=== PATIENT | female | born 1985 | race Caucasian/White ===

== ENCOUNTER 2017-08-12 22:39 | Emergency (ER) | payer OTHER ==
[~2017-08-12] VITALS: Ht 175.3 cm; Wt 164.2 kg
[2017-08-12 22:43] VITALS: TEMP 36.7; Ht 175.3 cm; Wt 164.2 kg
--- NOTE | 2017-08-12 22:56 | EMERGENCY ROOM VISIT NOTE ---
History Report prepared by Kwame: Isaías Saul Under the Supervision of: Dr. Antony Kim M.D. First contact with patient: 22:44 Chief Complaint: COUGH Stated Complaint: COUGH AND SORE THROAT History of Present Illness The patient is a 32 year old female who presents to the Emergency Room with complaints of a persistent cough and sore throat for the past week. The patient notes that her coughs has not been productive and her cough has been keeping her up at night. She reports having asthma as a child. The patient denies any experiencing any fevers, blood in her cough, recent travel, chest pain, nausea, vomiting, diarrhea, or any chance of . Source of History: patient Onset: 1 week ago Position: other Timing: other (persistent ) Associated Symptoms: + sorethroat, No fevers, No nausea, No vomiting, No diarrhea Note: Associated Symptoms: Asthma as a child Denies: Blood in cough, any chance of . Review of Systems See HPI for pertinent positives and negatives. A total of ten systems were reviewed and were otherwise negative. Family History Diabetes mellitus FH: cancer Social History Smoking Status: Never Smoker Smokeless Tobacco Use: No Alcohol Use: none Drug Use: none Marital Status: Housing Status: lives with family Occupation Status: unemployed Current/Historical Medications Scheduled PRN Benzonatate (Tessalon Perles), 100 MG PO TID PRN for Cough Allergies Coded Allergies: No Known Allergies (Unverified , 08/12/17) Physical Exam Vital Signs Date Time Temp Pulse Resp B/P (MAP) Pulse Ox O2 Delivery O2 Flow Rate FiO2 08/12/17 23:47 99 20 166/98 96 Room Air 08/12/17 22:43 36.7 102 20 139/90 93 Room Air Physical Exam Physical Exam GENERAL: She is oriented to person, place, and time. She appears well- developed and well-nourished. She does not appear distressed. ____ HENT: Exam performed. Head: Normocephalic and atraumatic. Right Ear: External ear normal. No mastoid tenderness. Left Ear: External ear normal. No mastoid tenderness. Mouth/Throat: The oropharynx is clear and moist. No trismus in the jaw. No dental abscesses or uvula swelling. No oropharyngeal exudate or tonsillar abscesses. ____ EYES: Conjunctivae and EOM are normal. Pupils are equal, round, and reactive to light. Right eye exhibits no discharge. Left eye exhibits no discharge. No scleral icterus. ____ NECK: Normal range of motion. Neck supple. No JVD present. No spinous process tenderness present. No carotid bruit present. No rigidity. No tracheal deviation and normal range of motion present. No Brudzinski's sign and no Kernig 's sign noted. ____ CV: Normal rate, regular rhythm, normal heart sounds and intact distal pulses. There is no peripheral edema. Palpable radial pulses bue. ____ PULM/CHEST: Effort normal and breath sounds normal. No respiratory distress. No stridor. She has no wheezes. She has no rales. Chest Wall: She exhibits no tenderness. ____ ABD: The abdomen is soft. Bowel sounds are normal. She has no distension. No mass is present. There is no tenderness. There is no rebound, no guarding, no Pearson's sign and no tenderness at McBurney's point. Rovsig negative MUSC/SKEL: Normal range of motion. There is no peripheral edema, tenderness or deformity. LYMPH: No cervical adenopathy. ____ NEURO: She is alert and oriented to person, place, and time. She has normal strength. No cranial nerve deficit or sensory deficit. Coordination and gait normal. GCS eye subscore is 4. GCS verbal subscore is 5. GCS motor subscore is 6. Cerebellar tests wnl. ____ SKIN: Skin is warm and dry. She is not diaphoretic. ____ PSYCH: She has a normal mood and affect. Her behavior is normal. Judgment and thought content normal. ____ Medical Decision & Procedures ER Provider Diagnostic Interpretation: Radiology results as stated below per my review and radiologist interpretation: Chest X-Ray shows no infiltrate, no cardiomegaly, no fluid overload, no acute fractures, no free air under the diaphragm. Laboratory Results Laboratory results reviewed by me ED Course 2246: The patient was evaluated in room B9. A complete history and physical exam was performed. 2313: Vital signs stable, rapid strep negative, chest x-ray negative. Follow up with PCP, discharge with [facility]. DISCHARGE - Plan of care discussed with patient and questions answered. The patient was given both verbal and printed discharge instructions. The patient verbalized understanding and ability to comply. The patient is to seek outpatient follow up as noted in the discharge instructions. The patient verbalized understanding and ability to comply. The patient is discharged in stable condition. The patient was instructed to return for worsening symptoms. Medical Decision Vital signs stable, rapid strep negative, chest x-ray negative. Follow up with PCP, discharge with Tessalon. DISCHARGE - Plan of care discussed with patient and questions answered. The patient was given both verbal and printed discharge instructions. The patient verbalized understanding and ability to comply. The patient is to seek outpatient follow up as noted in the discharge instructions. The patient verbalized understanding and ability to comply. The patient is discharged in stable condition. The patient was instructed to return for worsening symptoms. Medication Reconcilliation Current Medication List: was personally reviewed by me Blood Pressure Screening Patient's blood pressure: Normal blood pressure Impression Primary Impression: Upper respiratory infection Scribe Attestation The scribe's documentation has been prepared under my direction and personally reviewed by me in its entirety. I confirm that the note above accurately reflects all work, treatment, procedures, and medical decision making performed by me. The chart was completed utilizing [employer] voice recognition software. Grammatical errors, random word insertions, pronoun errors, and incomplete sentences are an occasional consequence of this system due to software limitations, ambient noise, and hardware issues. Any formal questions or concerns about the content, text, or information contained within the body of this dictation should be directly addressed to the physician for clarification. Departure Information Dispostion Home / Self-Care Prescriptions Benzonatate (TESSALON PERLUNA) 100 Mg Cap 100 MG PO TID Y for Cough, #21 CAP Prov: Antony Kim M.D. 08/12/17 Referrals No Doctor, Assigned (PCP) Forms HOME CARE DOCUMENTATION FORM, IMPORTANT VISIT INFORMATION Patient Instructions ED [facility], My [facility]
[2017-08-12] MEDS ORDERED: BENZ100C18 PO (23:14)
[2017-08-12 23:47] VITALS: BP 166/98; PULSE 99; O2SAT 96
--- NOTE | 2017-08-13 06:41 | DIAGNOSTIC IMAGING REPORT ---
CHEST 2 VIEWS ROUTINE HISTORY: 32 years-old Female cough acute cough with sore throat COMPARISON: None available TECHNIQUE: PA and lateral views of the chest FINDINGS: Cardiomediastinal and hilar silhouettes are within normal limits. No pneumothorax, pleural effusion, focal airspace consolidation or overt pulmonary edema. The bones of the chest appear grossly intact. IMPRESSION: No acute process. The above report was generated using voice recognition software. It may contain grammatical, syntax or spelling errors. Electronically signed by: Ld Rangel M.D. 08/13/2017 6:39 AM Dictated Date/Time: 08/13/2017 6:38 AM
== END 2017-08-12 23:49 | disposition home or self-care (01) ==
LOC: C.EDB 22:41
DX: J06.9 Acute upper respiratory infection, unspecified (principal); Z83.3 Family history of diabetes mellitus; Z80.9 Family history of malignant neoplasm, unspecified